=== PATIENT | female | born 1995 | race Caucasian/White ===

== ENCOUNTER 2020-05-20 21:15 | Emergency (ER) | payer SELFPAY ==
--- NOTE | 2020-05-20 21:27 | NUR ---
PATIENT LEFT WITHOUT BEING SEEN BY DR. blanco. NO FURTHER CARE PROVIDED FOR PATIENT.
== END 2020-05-20 21:27 | disposition left against medical advice (07) ==
LOC: MED 21:15
DX: R10.9 Unspecified abdominal pain (principal); Z53.21 Procedure and treatment not carried out due to patient leaving prior to being seen by health care provider

== ENCOUNTER 2020-05-21 11:16 | Emergency (ER) | payer SELFPAY ==
[~2020-05-21] VITALS: Ht 170.2 cm; Wt 59.0 kg
[2020-05-21 11:35] VITALS: BP 114/79
[2020-05-21] MEDS ORDERED: KETOROLAC 30 MG/ML VIAL IM ONE (12:45)
[2020-05-21 14:12] VITALS: BP 114/79
== END 2020-05-21 14:12 | disposition home or self-care (01) ==
LOC: MED 11:16
DX: R10.32 Left lower quadrant pain (principal); F17.210 Nicotine dependence, cigarettes, uncomplicated
CPT/HCPCS: 81002; 81025; 96372; 99283; J1885

== ENCOUNTER 2021-12-16 03:02 | Emergency (ER) | payer OTHER ==
[~2021-12-16] VITALS: Ht 170.2 cm; Wt 70.3 kg
[2021-12-16 03:05] VITALS: BP 109/68
--- NOTE | 2021-12-16 03:05 | NUR ---
TO BED AMBULATORY
--- NOTE | 2021-12-16 03:05 | NUR ---
Kelsy willams in [facility] - 12/16/21 at 0313 by JAVY TO BED AMBULATORY
[2021-12-16 03:09] VITALS: BP 109/68
--- NOTE | 2021-12-16 03:25 | NUR ---
RECEIVED IN BED 11 WITH C/O GENERALIZED ABD PAIN , NAUSEA,RADIATING HER BACK, FOR 5 DAYS. PT STATES APPETITE HAS BEEN DECREASED
--- NOTE | 2021-12-16 04:03 | NUR ---
PT TAKEN TO CT
--- NOTE | 2021-12-16 04:03 | NUR ---
TO CT VIA W/C
--- NOTE | 2021-12-16 04:20 | NUR ---
RETURNED FROM CT
[2021-12-16] MEDS ORDERED: KETOROLAC 60 MG/2 ML VIAL IM ONE (04:25)
[2021-12-16 05:04] LABS: BASOPHILS % (AUTO) 0.6 % (0.0-2.0); EOSINOPHILS # (AUTO) 0.1 K/uL (0-0.4); EOSINOPHILS % (AUTO) 1.3 % (0.0-4.0); HEMOGLOBIN 13.4 g/dL (12.0-16.0); LYMPHOCYTES # (AUTO) 1.3 K/uL (2.5-16.5); LYMPHOCYTES % (AUTO) 22.7 % (20.5-51.1); MEAN CORPUSCULAR HEMOGLOBIN 34 pg (27-31); MEAN CORPUSCULAR HGB CONC 35 g/dL (33-37); MEAN CORPUSCULAR VOLUME 97.7 fL (80-94); MONOCYTES # (AUTO) 0.6 K/uL (0.8-1.0); MONOCYTES % (AUTO) 9.9 % (1.7-9.3); NEUTROPHILS # (AUTO) 3.8 K/uL (1.8-7.7); NEUTROPHILS % (AUTO) 65.5 % (42.2-75.2); PLATELET COUNT (AUTO) 258 K/uL (140-450); RED BLOOD CELL COUNT(AUTO) 3.89 MIL/uL (4.20-5.40); RED CELL DISTRIBUTION WIDTH 13.3 % (11.6-13.7); WHITE BLOOD COUNT (AUTO) 5.8 K/uL (4.8-10.8)
[2021-12-16 05:17] LABS: ALBUMIN 3.7 g/dL (3.4-5.0); ANION GAP 12.1 (8-16); CARBON DIOXIDE 28.6 mmol/L (21-32); CREATININE 0.9 mg/dL (0.6-1.3); POTASSIUM 3.7 mmol/L (3.5-5.1); TOTAL BILIRUBIN 0.3 mg/dL (0.0-1.0)
[2021-12-16] MEDS ORDERED: NAPR-1003 PO (05:56)
[2021-12-16 08:30] LABS: BILIRUBIN,URINE NEGATIVE (NEGATIVE); BLOOD, URINE TRACE-I (NEGATIVE); COLOR,URINE YELLOW (YELLOW); LEUKOCYTE ESTERASE ,URINE NEGATIVE (NEGATIVE); NITRITE, URINE NEGATIVE (NEGATIVE); PH,URINE 6.5 (5.0-9.0); UGLUCOSE NEGATIVE (NEGATIVE)
[2021-12-16 09:39] LABS: APPEARANCE,URINE SLIGHTLY HAZY (CLEAR)
[2021-12-16 09:40] LABS: WBC,URINE 0-5 /HPF (0-5)
== END 2021-12-16 06:09 | disposition home or self-care (01) ==
LOC: MED 03:02
DX: R10.33 Periumbilical pain (principal); Z79.899 Other long term (current) drug therapy
CPT/HCPCS: 36415; 74176; 80053; 81001; 81025; 85025; 87086; 96372; 99284; J1885

== ENCOUNTER 2022-05-03 21:27 | Emergency (ER) | payer OTHER ==
[~2022-05-03] VITALS: Ht 170.2 cm; Wt 72.6 kg
[~2022-05-03 21:27] MED LIST: NAPR-1003 PO
--- NOTE | 2022-05-03 21:45 | NUR ---
CALLED TO TRIAGE, NO ANSWER
--- NOTE | 2022-05-03 21:55 | NUR ---
CALLED TO TRIAGE NO ANSWER
[2022-05-03 21:59] VITALS: BP 129/75
[2022-05-03] MEDS ORDERED: NACL 0.9% 1,000 ML IV SCH (22:25)
[2022-05-03] MEDS ORDERED: KETOROLAC 30 MG/ML VIAL IVP ONE (22:25)
[2022-05-03] MEDS ORDERED: ONDANSETRON 4 MG/2 ML VIAL IVP ONE (22:25)
[2022-05-03] MEDS ORDERED: PANTOPRAZOLE 40 MG INJ VIAL IVP ONE (22:25)
--- NOTE | 2022-05-03 22:35 | NUR ---
AMBULATED TO BED 9 FROM [facility]
[2022-05-03 22:48] LABS: BASOPHILS % (AUTO) 0.5 % (0.0-2.0); EOSINOPHILS # (AUTO) 0.1 K/uL (0-0.4); EOSINOPHILS % (AUTO) 1.3 % (0.0-4.0); HEMATOCRIT 38.5 % (36-48); HEMOGLOBIN 13.3 g/dL (12.0-16.0); LYMPHOCYTES # (AUTO) 1.5 K/uL (2.5-16.5); LYMPHOCYTES % (AUTO) 22.4 % (20.5-51.1); MEAN CORPUSCULAR HEMOGLOBIN 34 pg (27-31); MEAN CORPUSCULAR HGB CONC 34 g/dL (33-37); MEAN CORPUSCULAR VOLUME 99.3 fL (80-94); MONOCYTES # (AUTO) 0.6 K/uL (0.8-1.0); MONOCYTES % (AUTO) 8.1 % (1.7-9.3); NEUTROPHILS # (AUTO) 4.6 K/uL (1.8-7.7); NEUTROPHILS % (AUTO) 67.7 % (42.2-75.2); PLATELET COUNT (AUTO) 268 K/uL (140-450); RED BLOOD CELL COUNT(AUTO) 3.88 MIL/uL (4.20-5.40); RED CELL DISTRIBUTION WIDTH 13.2 % (11.6-13.7); WHITE BLOOD COUNT (AUTO) 6.9 K/uL (4.8-10.8)
[2022-05-03 23:05] LABS: ALBUMIN 3.8 g/dL (3.4-5.0); ANION GAP 8.1 (8-16); CARBON DIOXIDE 30.4 mmol/L (21-32); CREATININE 0.8 mg/dL (0.6-1.3); POTASSIUM 3.5 mmol/L (3.5-5.1); TOTAL BILIRUBIN 0.6 mg/dL (0.0-1.0)
--- NOTE | 2022-05-04 00:50 | NUR ---
US AT BEDSIDE
[2022-05-04 01:23] LABS: APPEARANCE,URINE CLEAR (CLEAR); BILIRUBIN,URINE NEGATIVE (NEGATIVE); BLOOD, URINE TRACE-I (NEGATIVE); COLOR,URINE YELLOW (YELLOW); LEUKOCYTE ESTERASE ,URINE NEGATIVE (NEGATIVE); NITRITE, URINE NEGATIVE (NEGATIVE); UGLUCOSE NEGATIVE (NEGATIVE)
[2022-05-04 01:28] LABS: RBC,URINE 0-5 /HPF (0-5); WBC,URINE 0-5 /HPF (0-5)
[2022-05-04] MEDS ORDERED: PANT40EC PO (01:47)
[2022-05-04] MEDS ORDERED: ONDA-188 SL (01:47)
[2022-05-04] MEDS ORDERED: KETO10TA2 PO (02:04)
--- NOTE | 2022-05-04 02:15 | NUR ---
IV removed, catheter intact and site benign. Applied folded 4x4 gauze and tape to stop bleeding.
[2022-05-04 02:30] VITALS: BP 114/76
--- NOTE | 2022-05-04 02:30 | NUR ---
Patient discharged with v/s stable. Written and verbal after care instructions given and explained. Patient alert, oriented and verbalized understanding of instructions. Ambulatory with steady gait. All questions addressed prior to discharge. ID band removed. Patient advised to follow up with PMD. Rx of KETOROLAC, ONDANSETRON, PANTOPRAZOLE given. Patient educated on indication of medication including possible reaction and side effects. Opportunity to ask questions provided and answered.
== END 2022-05-04 00:30 | disposition home or self-care (01) ==
LOC: MED 21:27
DX: R10.13 Epigastric pain (principal); R11.2 Nausea with vomiting, unspecified; R19.7 Diarrhea, unspecified; F12.90 Cannabis use, unspecified, uncomplicated; Z86.39 Personal history of other endocrine, nutritional and metabolic disease; Z79.899 Other long term (current) drug therapy; Z79.1 Long term (current) use of non-steroidal anti-inflammatories (NSAID)
CPT/HCPCS: 36415; 76705; 80053; 81001; 81025; 83690; 85025; 96374; 96375; 99284; C9113; J1885; J2405; J7030; Q0092